=== PATIENT | female | born 1990 | race Caucasian/White ===

== ENCOUNTER 2018-01-27 20:21 | Inpatient (IN) | payer BC ==
[2018-01-27 20:54] VITALS: BMI 36.8
[2018-01-27] MEDS ORDERED: Penicillin G Potassium 5 MILL.UNITS VIAL ONE (21:13)
[2018-01-27] MEDS: Lactated Ringer's 1,000 ML IV SCH (21:30)
[2018-01-27] MEDS ORDERED: Promethazine HCl 25 MG/ML VIAL IM PRN (21:35)
[2018-01-27] MEDS ORDERED: Butorphanol Tartrate 1 MG/ML VIAL SLOW IVP PRN (21:35)
[2018-01-27] MEDS ORDERED: Ondansetron HCl/PF 4 MG/2 ML Vial IVP PRN (21:35)
[2018-01-27 21:41] LABS: Hemoglobin 12.3 g/dL (12.0-16.0); Mean Corpuscular HGB CONC 35.3 g/dL (32.0-36.0); Mean Corpuscular Hemoglobin 30.2 pg (27.0-31.0); Mean Corpuscular Volume 85.7 fl (81.0-99.0); Mean Platelet Volume 7.3 fL (7.4-10.4); Platelet Count 282 thou/uL (130-400); Red Blood Cell (RBC) Count 4.06 mill/uL (4.20-5.40)
[2018-01-27] MEDS ORDERED: NS / Oxytocin 40 units/1000ml 1,000 ML IV SCH (21:45)
[2018-01-27] MEDS ORDERED: NS w/ Oxytocin 10 units 500 ML IV SCH ×2 (21:45)
[2018-01-27] MEDS ORDERED: Penicillin G Potassium 5 MILL.UNITS in Sodium Chloride 0.9% 100 ML IVPB SCH (21:45)
[2018-01-27] MEDS ORDERED: Ibuprofen 800 MG TAB PO PRN (21:45)
[2018-01-27] MEDS ORDERED: Bupivacaine 0.5% 20 ML, fentaNYL Citrate/PF 400 MCG in Sodium Chloride 0.9% 72 ML EPIDURAL SCH (22:00)
[2018-01-27] MEDS ORDERED: DISCONTINUE ALL PREVIOUS NARCOTICS FS SCH (22:00)
[2018-01-27] MEDS ORDERED: Lidocaine 1% (PF) 30 ML VIAL SC PRN (22:00)
[2018-01-27 22:28] LABS: Syphilis Antibody Nonreactive (Nonreactive); Syphilis Antibody Index 0.07 S/CO (<1.00 Non-Reactive)
[2018-01-28] MEDS: Penicillin G 2.5 MILL.units 2.5 MILL.UNITS in Premix Bag 1 BAG IVPB SCH ×2 (01:07→07:00)
[2018-01-28 01:38] LABS: HBSAg Index 0.23 S/CO (0-0.99); Hep B Surf Ag Non-Reactive S/CO (NonReactive)
[2018-01-28] MEDS ORDERED: Milk Of Magnesia 30 ML UDCUP PO PRN (03:08)
[2018-01-28] MEDS ORDERED: Acetaminophen/Codeine 30-300mg Tablet PO PRN ×2 (03:08)
[2018-01-28] MEDS ORDERED: Bisacodyl 10 MG SUPP PR PRN (03:08)
[2018-01-28] MEDS ORDERED: diphenhydrAMINE 25 MG CAP PO PRN (03:08)
[2018-01-28] MEDS ORDERED: Benzocaine/Menthol 20-0.5% 60 ML CAN TOP PRN (03:08)
[2018-01-28] MEDS ORDERED: Lanolin Ointment 7 GM TUBE TOP PRN (03:08)
[2018-01-28] MEDS ORDERED: Adacel (T-DAP) 0.5 ML VIAL IM ONE (03:08)
[2018-01-28] MEDS ORDERED: Preparation H Ointment 28 GM TUBE PR PRN (03:08)
[2018-01-28] MEDS ORDERED: Zolpidem Tartrate 5 MG TAB PO PRN (03:08)
[2018-01-28] MEDS ORDERED: Ondansetron HCl/PF 4 MG/2 ML Vial IVP PRN (03:08)
[2018-01-28] MEDS ORDERED: NS / Oxytocin 40 units/1000ml 1,000 ML IV SCH (03:15)
[2018-01-28] MEDS: Ibuprofen 800 MG TAB PO SCH ×3 (06:39→21:17)
[2018-01-28] MEDS: Lactated Ringer's 1,000 ML IV SCH (07:00)
[2018-01-28 07:18] LABS: Hemoglobin 11.3 g/dL (12.0-16.0); Mean Corpuscular HGB CONC 34.4 g/dL (32.0-36.0); Mean Corpuscular Hemoglobin 29.9 pg (27.0-31.0); Mean Corpuscular Volume 86.9 fl (81.0-99.0); Mean Platelet Volume 7.6 fL (7.4-10.4); Platelet Count 287 thou/uL (130-400); RBC Distribution Width 12.1 % (11.5-14.5); Red Blood Cell (RBC) Count 3.79 mill/uL (4.20-5.40); White Blood Cell (WBC) Count 16.7 thou/uL (4.8-10.8)
[2018-01-28] MEDS: Docusate Calcium (SURFAK) 240 MG CAP PO SCH ×2 (09:05→21:17)
[2018-01-28] MEDS: Ferrous Sulfate 325 MG TAB PO SCH ×2 (09:08→17:00)
[2018-01-28] MEDS: Prenatal Vitamin 1 TAB PO SCH (14:12)
[2018-01-29] MEDS: Ibuprofen 800 MG TAB PO SCH ×2 (06:25→15:18)
[2018-01-29] MEDS: Ferrous Sulfate 325 MG TAB PO SCH (07:06)
[2018-01-29] MEDS: Prenatal Vitamin 1 TAB PO SCH (09:01)
[2018-01-29] MEDS: Docusate Calcium (SURFAK) 240 MG CAP PO SCH (09:01)
[2018-01-29 09:03] VITALS: BP 124/71; TEMP 97.4
== END 2018-01-29 16:55 | disposition home or self-care (01) | DRG 775 ==
LOC: L&D/OP 20:21 → L&D 23:44 → 3SE 01-28 05:49
PROVIDERS: ADMIT Obstetrics & Gynecology; ATTEND Obstetrics & Gynecology
PROC: 10E0XZZ Delivery of Products of Conception, External Approach (ICD-10-PCS; principal; 2018-01-28)
DX: O80 Encounter for full-term uncomplicated delivery (principal); Z37.0 Single live birth; Z3A.39 39 weeks gestation of pregnancy
CPT/HCPCS: 36415; 51702; 85027; 86780; 86850; 86900; 86901; 87340; 99285; J2405; J2540; J3010; J3490; J7050